=== PATIENT | female | born 1985 | race Caucasian/White ===

== ENCOUNTER 2024-03-10 17:52 | Outpatient (CLI) | payer OTHER, SELFPAY ==
[2024-03-10 23:05] LABS: Chlamydia DNA Amplified* NOT DETECTED (No Detected); GC DNA Amplified* NOT DETECTED (No Detected)
== END 2024-03-10 17:53 | disposition home or self-care (01) ==
PROVIDERS: Visit Provider Registered Nurse
DX: Z34.91 Encounter for supervision of normal pregnancy, unspecified, first trimester (principal); Z3A.09 9 weeks gestation of pregnancy
CPT/HCPCS: 76817; 86592; 86703; 86704; 86706; 86762; 86787; 86803; 86850; 86900; 86901; 87086; 87340; 87491; 87591

== ENCOUNTER 2024-03-31 14:25 | Outpatient (CLI) | payer OTHER, SELFPAY ==
--- NOTE | 2024-03-31 15:00 | CRLHL7_ITS ---
For Patients: As a result of the Century Cures Act, medical imaging exams and procedure reports are released immediately into your electronic medical record. You may view this report before your referring provider. If you have questions, please contact your health care provider. INDICATION: Follow-up tachycardia COMPARISON: 03/10/2024 TECHNIQUE: Real-time garza-scale imaging of the pelvis was performed. FINDINGS: Sonographic imaging demonstrates a single living intrauterine gestation. The embryo demonstrates a regular cardiac rate measuring 165 beats per minute. The embryo`s crown-rump length measurement of 6.1 cm corresponds to a gestational age of 12 weeks 4 days with a sonographic due date of 10/09/2024. The yolk sac is not visualized. There are no gross abnormalities noted within the embryo at this early state of development. The gestational sac has a normal appearance. There is no evidence of a perigestational hemorrhage. The amount of fluid within the sac appears appropriate for gestational age. IMPRESSION: Single living intrauterine with sonographic gestational age 12 weeks 4 days and sonographic due date of 10/09/2024. heart rate 165 beats per minute. Dictated by Stevie Juárez MD @ 04/02/2024 7:10:17 AM (Electronically Signed)
== END 2024-03-31 14:26 | disposition home or self-care (01) ==
LOC: US 14:26
PROVIDERS: Visit Provider Registered Nurse
DX: O36.8310 Maternal care for abnormalities of the fetal heart rate or rhythm, first trimester, not applicable or unspecified (principal); Z3A.12 12 weeks gestation of pregnancy
CPT/HCPCS: 76801

== ENCOUNTER 2024-05-27 10:20 | Outpatient (CLI) | payer OTHER, SELFPAY | END 2024-05-27 10:21 | disposition home or self-care (01) | LOC: US 10:20 | PROVIDERS: Visit Provider Midwife | DX: O09.522 Supervision of elderly multigravida, second trimester (principal); Z3A.20 20 weeks gestation of pregnancy | CPT/HCPCS: 76811 ==

== ENCOUNTER 2024-07-21 11:50 | Outpatient (CLI) | payer OTHER, SELFPAY | END 2024-07-21 11:51 | disposition home or self-care (01) | LOC: NFLDREF 07-25 02:56 | PROVIDERS: Visit Provider Advanced Practice Midwife | DX: Z34.93 Encounter for supervision of normal pregnancy, unspecified, third trimester (principal); Z3A.28 28 weeks gestation of pregnancy | CPT/HCPCS: 86592 ==

== ENCOUNTER 2024-08-09 09:49 | Outpatient (CLI) | payer OTHER, SELFPAY ==
[2024-08-09 09:34] VITALS: BP 109/68; PULSE 56; RESP 16; TEMP 36.5; O2SAT 99; BMI 28.1
[2024-08-09 10:09] VITALS: BP 105/59; PULSE 57
[2024-08-09 13:24] LABS: Fetal Fibronectin* Negative (Negative)
--- NOTE | 2024-08-09 13:43 | PC.OBNST ---
NST Note NST Note Start: 08/09/24 10:06 Freq: ONCE Status: Active Protocol: Document 08/09/24 13:41 YONNY (Rec: 08/09/24 13:42 YONNY [id number]) NST Note 5 Para (# of births) 2 EDC 10/13/24 Gestational Age In Weeks & Days 30 Weeks & 5 Days Patient Presented with Complaint(s) of Other Other Complaints Pt. tripped and fell while out for a run, fell on hands and knees and bumped abdomen Reactive Yes Appropriate for Gestational Age Yes CHARAN Wilson Date 08/09/24 Reactive Yes Appropriate for Gestational Age Yes CHARAN Infante Date 08/09/24 OB NST charge Yes Complete NST Note via Write Note Yes The provider's electronic signature indicates the NST is reactive/appropriate for gestational age. *Note to provider: If an addendum is required, open the patient's chart and click on the note under the Nurse/Allied Health tab.
== END 2024-08-09 13:42 | disposition home or self-care (01) ==
LOC: OB OUT 09:51 → OB 09:56
PROVIDERS: Visit Provider Advanced Practice Midwife
DX: O26.893 Other specified pregnancy related conditions, third trimester (principal); S39.91XA Unspecified injury of abdomen, initial encounter; W01.0XXA Fall on same level from slipping, tripping and stumbling without subsequent striking against object, initial encounter; Y93.02 Activity, running; Y92.9 Unspecified place or not applicable; Z3A.30 30 weeks gestation of pregnancy
CPT/HCPCS: 59025; 84112; G0463

== ENCOUNTER 2024-09-18 15:15 | Outpatient (CLI) | payer OTHER, SELFPAY | END 2024-09-18 15:16 | disposition home or self-care (01) | LOC: NFLDREF 09-21 02:09 | PROVIDERS: Visit Provider Advanced Practice Midwife | DX: Z34.83 Encounter for supervision of other normal pregnancy, third trimester (principal) | CPT/HCPCS: 87081; 87653 ==

== ENCOUNTER 2024-09-22 08:21 | Outpatient (CLI) | payer OTHER, SELFPAY ==
[2024-09-22 08:29] VITALS: PULSE 68; O2SAT 99
[2024-09-22 08:34] VITALS: PULSE 70; O2SAT 98
[2024-09-22 08:36] VITALS: BP 111/71; PULSE 82
[2024-09-22 08:56] VITALS: TEMP 36.6
--- NOTE | 2024-09-22 09:20 | P.OBO_ITS ---
OB Outpatient HPI History of Present Illness Time Seen by Provider: 08:40 Date Seen: 09/22/24 History of Present Illness: 39 year old at 37weeks gestation by LMP, DARIEN 10/13/2024 , presents to the center for a scheduled external cephalic version (ECV) for breech presentation diagnosed at her last visit on 09/18/2024. She had a nonstress test performed that was reviewed with her which showed: My Interpretation of NST: Baseline 130s. Accelerations: Present. Decelerations: Absent. Contractions: Present: Patient not feeling them. Reactive, category 1. A bedside ultrasound was performed and confirmed vertex presentation with the back on the maternal left. Breech in the maternal right upper quadrant. An ECV did not have to be performed. The patient will keep her next visit appointment next week. Is a patient of the nurse midwives. Baby moving naturally: Yes Bleeding: No Contractions: No Leaking fluid: No Discharge: No Heartburn: No Back pain: No Meds Home Medications and Allergies Home Medications ?Medication ?Instructions ?Recorded ?Confirmed ?Type docosahexaenoic acid 200 mg 200 mg PO DAILY 03/10/24 09/22/24 History capsule ( DHA) Allergies Allergy/AdvReac Type Severity Reaction Status Date / Time cefaclor (From Ceclor) Allergy Intermediate Verified 09/22/24 08:55 [facility] Medical History (Updated 09/22/24 @ 09:25 by Concepción Foster MD) Asthma ?J45.909 - Unspecified asthma, uncomplicated (ICD-10) History of miscarriage ?Z87.59 - Personal history of other complications of , childbirth and the puerperium (ICD-10) Surgical History [place] teeth extracted ?K08.409 - Partial loss of teeth, unspecified cause, unspecified class (ICD- 10) History of placement of ear tubes ?Z96.22 - Myringotomy tube(s) status (ICD-10) Social History Narrative: 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 What is your current living situation?: I presently have a place to live Problems where you live: no known problems In the past 12 months, utilities in danger of being shut off: no In past 12 months, lack of transportation kept you from medical appts, meetings, work, or getting things needed for daily living: no In the past 12 mos, have been you worried that your food would run out before you had money to buy more?: never true In the past 12 mos, the food you bought just didn't last and you didn't have money to buy more?: never true Smoking Status: Never smoker How often does anyone, including family, friends and others, physically hurt you : never How often does anyone, including family, friends and others, insult or talk down to you: never How often does anyone, including family, friends and others, threaten you with harm: never How often does anyone, including family, friends and others, scream or curse at you: never History History 5 Elective abortions Para 2 Spontaneous abortions 2 Hx # Term Pregnancies 2 Ectopic pregnancies Hx # Pregnancies Multiple births Number of Living Children 2 Past Pregnancies Del. Date GA/Weeks Outcome Route wt Inf Gender Labor Lgth Anesthesia Location Provider Compli 07/07/19 41 live - full term 8 lb 11 oz Male 24 ep idural Radha- Michelle infection 12/14/21 40 live - full term 8 lb Male 16 none [facility] hemorrhage OB - H&P: Exam Physical Exam Vital signs: Temp Pulse BP Pulse Ox 97.8 F 82 111/71 98 09/22/24 08:56 09/22/24 08:36 09/22/24 08:36 09/22/24 08:34 Narrative: General: Pleasant, woman in no acute distress. Vital signs: Included in her electronic medical record. Bedside ultrasound performed as stated in the HPI above: Fetus in the vertex presentation. External monitor: Baseline 130s, reactive NST. [place]: Contractions every 5-6 minutes that the patient is not feeling. SVE: Deferred Extremities: No pain or edema. Assessment and Plan Assessment and plan (1) Breech presentation: Problem comment: Spontaneously converted to vertex noted on 09/22/2024. Status: Acute Plan 1. Spontaneous conversion to cephalic presentation. 2. ECV was not required. 3. Patient will return to the nurse health and fitness professor care next week for her next visit.
--- NOTE | 2024-09-22 09:33 | PC.OBNST ---
NST Note NST Note Start: 09/22/24 08:25 Freq: ONCE Status: Active Protocol: Document 09/22/24 09:29 FJZ (Rec: 09/22/24 09:32 FJZ [id number]) NST Note 5 Para (# of births) 2 EDC 10/13/24 Gestational Age In Weeks & Days 37 Weeks & 0 Days Patient Presented with Complaint(s) of Other Other Complaints Pt came to the center for a scheduled cephalic version. Baby confirmed head down with ultrasound so no version performed. Reactive Yes CHARAN Shine RN Date 09/22/24 Reactive Yes CHARAN Benedict RN Date 09/22/24 OB NST charge Yes Complete NST Note via Write Note Yes The provider's electronic signature indicates the NST is reactive/appropriate for gestational age. *Note to provider: If an addendum is required, open the patient's chart and click on the note under the Nurse/Allied Health tab.
== END 2024-09-22 09:15 | disposition home or self-care (01) ==
LOC: OB OUT 08:22 → OB 08:22
PROVIDERS: Visit Provider Obstetrics & Gynecology
DX: O32.1XX0 Maternal care for breech presentation, not applicable or unspecified (principal); Z3A.37 37 weeks gestation of pregnancy
CPT/HCPCS: 59025; 76815; G0463

== ENCOUNTER 2024-10-16 20:14 | Inpatient (IN) | payer OTHER, SELFPAY ==
[2024-10-16 19:35] VITALS: BP 140/71; RESP 16; TEMP 36.9; O2SAT 99
[2024-10-16 20:01] VITALS: PULSE 82; O2SAT 98
[2024-10-16 20:09] VITALS: PULSE 71; O2SAT 98
[2024-10-16 20:32] VITALS: BMI 30.2
--- NOTE | 2024-10-16 20:46 | W.PM.LDBA ---
Documented by User: Alessia Kelly 10/17/24 00:36 Subjective History of Present Illness Time Seen by Provider: 20:30 Date Seen: 10/16/24 Narrative: Patient is being admitted to Labor and Delivery for spontaneous contraction. She is a 39 year old at weeks gestation. Her full history and physical was dictated by Sara Gardner CNM and SHANTANU Wooten on 09/24/24. Please see this for details. Specific Issues/Plans G 5 P 2021 Unknown gender, no circ H&P 09/24/24 by Sara Gardner CNM and SHANTANU Estrada # Advanced Maternal Age Mat 21: NEGATIVE (THEY DO NOT KNOW SEX YET!) Level 2 ultrasound no concerns EFW 87% # Asthma-exercise induced and sometimes with illness # Elevated WBCs at 28 weeks. Just getting over a cold at that time. Can consider rechecking. # Breech presentation at 36.3 weeks Recommend ECV, discussed risk/benefit and pt/ desire Spontaneous conversion to cephalic presentation on 09/22/24! Ultrasound: 05/27/2024 [facility]: Impression: 1. Ryan intrauterine at 20w 1d gestational age. 2. None of the anomalies commonly detected by ultrasound were evident in the detailed anatomic survey described above. 3. Growth parameters and estimated weight were consistent with appropriate for gestational age pattern of growth. 4. The amniotic fluid volume appeared normal. Covid: Completed, boosted on 09/04/2024 Flu: completed 08/04/2024 Tdap: completed 08/04/2024 GBS: 09/18/24 Negative H&P: 09/24/24 OB - Problem Based A/P Additional Plan (1) Pain during labor: Status: Acute (2) 40 weeks gestation of : Status: Acute (3) Asthma: Problem details: Utilizes inhaler only after illness. Status: Acute (4) Advanced maternal age in multigravida: Status: Acute Plan ASSESSMENT:?? 39 at 40 weeks 3 days gestation?? complicated by:??Advanced maternal age, breech presentation @ 36w3d, resolved. Labor type: Spontaneous, Early labor?? Category 1 FHR pattern.??? Labor complicated by: [ ]?? GBS negative ?? PLAN:?? 1. Routine intrapartum cares as ordered. Continue with expectant management?? 2. Monitoring per policy, intermittent 3. Planning unmedicated . Desires water . Consent signed. Hep C negative. Candidate for analgesia of choice.??? 4. Patient encouraged to reposition and ambulate to promote physiologic labor and .?? 5. Anticipate ? Delivery/Labor/Induction Plan Plan: expectant management OB Result Labs Labs: Hgb 13.3 on 09/08/24 Labs Blood Type: O (+) positive Rubella: immune RPR/VDLR: nonreactive GBS Status: negative HBsAG: negative OB Exam Physical Exam Vital signs: Pulse Ox 98 10/16/24 20:09 Narrative: Vitals Reviewed Constitutional:? Alert and oriented x3 HEENT:? Normocephalic, atraumatic Neck:? Supple Lungs:? Clear to auscultation bilaterally Heart:? Regular rate and rhythm, no murmur, rub or gallop Abdomen:? Soft, nontender, and gravid. Vertex by Brian's, confirmed with cervical exam. Extremities:? No edema or erythema Cervix:5.5 cm/80%/-1 station/vertex NST: 120 bpm/moderate variability/[id number]/no decelerations/regular contractions 1.5-4 min apart for 80-100 second long Documented by User: Conchis Noel CNM 10/17/24 00:42 Subjective History of Present Illness Narrative: Patient is being admitted to Labor and Delivery for spontaneous contraction. She is a 39 year old at 40.3 weeks gestation. Her full history and physical was dictated by Sara Gardner CNM and SHANTANU Wooten on 09/24/24. Please see this for details. Specific Issues/Plans G 5 P 2021 Unknown gender, no circ H&P 09/24/24 by Sara Gardner CNM and SHANTANU Estrada # Advanced Maternal Age Mat 21: NEGATIVE (THEY DO NOT KNOW SEX YET!) Level 2 ultrasound no concerns EFW 87% # Asthma-exercise induced and sometimes with illness # Elevated WBCs at 28 weeks. Just getting over a cold at that time. Can consider rechecking. # Breech presentation at 36.3 weeks Recommend ECV, discussed risk/benefit and pt/ desire Spontaneous conversion to cephalic presentation on 09/22/24! Ultrasound: 05/27/2024 [facility]: Impression: 1. Ryan intrauterine at 20w 1d gestational age. 2. None of the anomalies commonly detected by ultrasound were evident in the detailed anatomic survey described above. 3. Growth parameters and estimated weight were consistent with appropriate for gestational age pattern of growth. 4. The amniotic fluid volume appeared normal. Covid: Completed, boosted on 09/04/2024 Flu: completed 08/04/2024 Tdap: completed 08/04/2024 GBS: 09/18/24 Negative H&P: 09/24/24 OB - Problem Based A/P Additional Plan (1) Pain during labor: Status: Acute (2) 40 weeks gestation of : Status: Acute (3) Asthma: Problem details: Utilizes inhaler only after illness. Status: Acute (4) Advanced maternal age in multigravida: Status: Acute Plan ASSESSMENT:?? 39 at 40 weeks 3 days gestation?? complicated by:??Advanced maternal age, breech presentation @ 36w3d, resolved. Labor type: Spontaneous, Early labor?? Category 1 FHR pattern.??? Labor complicated by: none GBS negative ?? PLAN:?? 1. Routine intrapartum cares as ordered. Continue with expectant management?? 2. Monitoring per policy, intermittent 3. Planning unmedicated . Desires water . Consent signed. Hep C negative. Candidate for analgesia of choice.??? 4. Patient encouraged to reposition and ambulate to promote physiologic labor and .?? 5. Anticipate OB Exam Physical Exam Vital signs: Vital Signs Temp Resp BP Pulse Ox 98.4 F 16 140/71 H 99 10/16/24 19:35 10/16/24 19:35 10/16/24 19:35 10/16/24 19:35
[2024-10-16 21:30] VITALS: BP 125/72; PULSE 76; RESP 16
[2024-10-16 22:03] VITALS: TEMP 36.8
[2024-10-16 23:46] VITALS: BP 126/57; PULSE 79
[2024-10-16] MEDS: LIDOCAINE 1 % PF 30 ML INJECTION (23:58)
[2024-10-17] VITALS (13 sets, daily range): BP systolic 113–124; BP diastolic 55–73; PULSE 59–82; RESP 14–16; TEMP 36.7–37.6; O2SAT 96–97
[2024-10-17] MEDS: IBUPROFEN 600 MG TABLET PO ×4 (00:20→21:47)
--- NOTE | 2024-10-17 00:25 | W.PM.OBVAGDE ---
Documented by User: Conchis Noel CNM 10/17/24 01:02 OB Procedure Vag Delivery Mother Details Mother Details: The patient is a 39 year-old, 5, now Para 3, admitted on 10/16/24 at 40.3 weeks gestation. : 5 Para: 3 Weeks Gestation: 40.3 Admission Date: 10/16/24 Additional Details Amniotic Membrane Status: SROM Amniotic Membrane Rupture Date: 10/16/24 Amniotic Membrane Rupture Time: 22:46 Intrapartal Events: None Heart: heart tones during second stage were reassuring via intermittent auscultation with doppler. Delivery Details Delivery Details: Patient was admitted for spontaneous onset of labor and progressed normally. Labored ambulating in room and eventually in tub, with position changes throughout until delivery in semi-Recumbant position. SROM noted at 2246 with clear fluid. Patient was assumed complete with pushing at 2250. of a viable male at 2319 in the tub. Vertex delivered OA, restituted LOT. No nuchal cord or shoulder dystocia. Body delivered easily and without incident. passed to mothers abdomen with a vigorous cry. Cord was clamped and cut at > 5 minutes. APGARS were 7 at one minute and 9 at five minutes respectively. Mouth was bulb suctioned. Infant was taken to warmer while mother was assisted from tub to bed. returned to skin to skin on mom. Intact placenta with a 3 vessel cord delivered spontaneously at 2344. Fundus firm. 2nd degree identified and repaired in typical fashion. QBL 450 cc. Mother and baby stable; mother plans to breastfeed. Infant weight 4170 g. 1 Minute Interval Total Score: 7 5 Minute Interval Total Score: 9 Event Summary Status: Mother and were stable after delivery. I,?Conchis Noel APRN, CNM, was present for visit and have reviewed and agree with documentation by the Certified Nurse Midwifery Student. Documented by User: Alessia Kelly 10/17/24 00:54 OB Procedure Vag Delivery Additional Details Amniotic Membrane Fluid Description: Clear Analgesia/Anesthesia Type: None Waterbirth: Yes [place]: No Labor Onset: 19:59 Complete: 22:50 Pushin:50 Heart: heart tones during second stage were Category I Delivery Details Delivery Date: 10/16/24 Delivery Time: 23:19 Route of delivery: Infant Gender: Male Infant Viability: Alive; Heart Rate Present Position at Delivery: OA Delivery Details: Patient was admitted for spontaneous onset of labor and progressed normally. Labored ambulating in room and eventually in tub, with position changes throughout until delivery in semi-Recumbant position. SROM noted at 2246 with clear fluid. Patient was assumed complete with pushing at 2250. of a viable male at 2319 in the tub. Vertex delivered OA, restituted LOT. No nuchal cord or shoulder dystocia. Body delivered easily and without incident. passed to mothers abdomen with a vigorous cry. Cord was clamped and cut at > 5 minutes. APGARS were 8 at one minute and 9 at five minutes respectively. Mouth was bulb suctioned. Intact placenta with a 3 vessel cord delivered spontaneously at 2344. Fundus firm. 2nd degree identified and repaired in typical fashion. QBL 450 cc. Mother and baby stable; mother plans to breastfeed. weight pending. Additional Details Shoulder Dystocia: No Placenta Delivery Time: 23:44 Placental Delivery Description: Spontaneous Delivery repair: Vicryl Procedure Done: Global Blood Loss: 450 Laceration: Vaginal - 2nd Degree Blood Loss Measurement Type: QBL Bakri Used: No Sponge/Need Count Correct: Yes Cord Vessel Description: 3 Vessels Event Summary Disposition: floor
[2024-10-17] MEDS: ACETAMINOPHEN 500 MG TABLET 1000 MG PO ×3 (01:53→17:31)
[2024-10-17] MEDS: DOCUSATE SODIUM 100 MG CAPSULE PO (08:17)
--- NOTE | 2024-10-17 09:02 | PM.OBPNVD1 ---
OB - PN:Subj Subjective Date Seen: 10/17/24 Narrative: Kathleen is a 39 y.o. who was admitted to L & D for labor.? She had an uncomplicated NVD.? ?? The patient feels well.? The pain is well controlled with current medications, advised to take Tylenol and ibuprofen on a schedule for complaints of cramping with nursing.? She has no new complaints.? She is breast feeding and reports things are going well.? the patient has done well.? Vitals have been stable.? She has remained afebrile.? Has a good appetite, is tolerating a general diet.? She is voiding without difficulty.? She is passing gas and has not had a bowel movement.? She is ambulating and denies any dizziness.? Has Small amount of rubra lochia.? OB - PN: Obj Exam Physical Exam: Vital signs: Temp Pulse Resp BP Pulse Ox O2 Del Method 98.1 F 59 L 16 118/65 96 Room Air 10/17/24 05:00 10/17/24 05:00 10/17/24 05:00 10/17/24 05:00 10/17/24 05:00 10/17/24 05:00 Narrative: GENERAL APPEARANCE:? normal affect, alert, no distress? MOOD:? appropriate? HEENT: normocephalic, neck supple, full ROM? CHEST:? Symmetrical chest wall movement.? Normal respiratory effort.? Clear to auscultation ? HEART:? regular rate and rhythm? ABDOMEN:? soft, non-tender. Uterine fundus is firm, at Umbilicus, Midline and is appropriate for the stage of recovery.? Bowel sounds present.? PERINEUM:? mild edema of the perineum, there is a 2nd degree laceration that is healing well.? EXTREMITIES:? normal and no edema? OB - PN: A/P Delivery Assessment and Plan (1) Pain during labor: Status: Acute (2) 40 weeks gestation of : Status: Acute (3) Asthma: Problem details: Utilizes inhaler only after illness. Status: Acute (4) Advanced maternal age in multigravida: Status: Acute (5) care and examination of lactating mother: Status: Acute Plan day: 1 Plan: routine care Comments: G 5 P 3 status post uncomplicated NVD??? 1.? Continue route PP cares? 2.? .? May see if desired? 3.? Anticipate discharge home tomorrow?
[2024-10-18 05:00] VITALS: BP 122/78; PULSE 64; RESP 16; O2SAT 97
[2024-10-18 07:36] VITALS: BP 111/73; PULSE 63; RESP 16; TEMP 36.3
[2024-10-18] MEDS: ACETAMINOPHEN 500 MG TABLET 1000 MG PO (07:44)
[2024-10-18] MEDS: DOCUSATE SODIUM 100 MG CAPSULE PO (07:44)
--- NOTE | 2024-10-18 09:10 | PM.OBDSVD1 ---
DS: Providers Provider Date Seen: 10/18/24 Date of admission: 10/16/24 20:14 Primary care physician: Not a Local Provider Admitting Clinician: Conchis Noel CNM Attending Physician on discharge: Tito Castle CNM Date of Discharge: 10/18/24 DS: Diagnosis Discharge Diagnosis (1) care and examination of lactating mother: Status: Acute Exam Narrative: Exam Narrative: VSS, afebrile GENERAL APPEARANCE: ?normal affect, alert, no distress MOOD: ?appropriate HEENT: normocephalic, neck supple, full ROM CHEST: ?Symmetrical chest wall movement. ?Normal respiratory effort. ?Clear to auscultation HEART: ?regular rate and rhythm ABDOMEN: ?soft, non-tender. Uterine fundus is firm, at Umbilicus, Midline and is appropriate for the stage of recovery. ?Bowel sounds present. PERINEUM: ?mild edema of the perineum, there is a 2nd degree laceration that is healing well. EXTREMITIES: ?normal and no edema Const: Vital Signs, click to edit/add: Vital Signs - 24 hr 10/17/24 10:00 10/17/24 10:10 10/17/24 12:15 Temperature 98.0 F 98.0 F 98.2 F Pulse Rate [Pulse Oximeter] 67 Respiratory Rate 16 Blood Pressure [Le ft Arm] 113/69 Pulse Oximetry 97 Oxygen Delivery Me thod Room Air 10/17/24 15:56 10/17/24 20:04 10/18/24 05:00 Temperature 98.2 F Pulse Rate [Pulse Oximeter] 66 75 64 Respiratory Rate 14 16 16 Blood Pressure [Le ft Arm] 115/66 124/73 122/78 Pulse Oximetry 96 97 97 Oxygen Delivery Me thod Room Air Room Air Room Air 10/18/24 07:36 Temperature 97.4 F L Pulse Rate [Pulse Oximeter] 63 Respiratory Rate 16 Blood Pressure [Le ft Arm] 111/73 Pulse Oximetry Oxygen Delivery Me thod Room Air Documenting provider has reviewed patient's vital signs: yes OB - DS: Summary Hospital Course Hospital Course: Kathleen is a 39 y.o. who was admitted to L & D for labor. ?She had an uncomplicated NVD.?The patient feels well. ?The pain is well controlled with current medications. ?She has no new complaints. ?She is breast feeding and reports things are going well.? the patient has done well.? Vitals have been stable.? She has remained afebrile.? Has a good appetite, is tolerating a general diet. ?She is voiding without difficulty.? She is passing gas and has not had a bowel movement.? She is ambulating and denies any dizziness.? Has Small amount of rubra lochia. ?She is planning condoms for prevention. Peripartum Data delivery method: Vaginal Laceration description: Vaginal - 2nd Degree complications: none [place] Infant Gender: Male Infant Discharge Plan: Home Status at Discharge Functional status at discharge: independent ambulation Overall status at discharge: patient is progressing back to baseline Time Spent with Patient Time attestation: Total time spent providing and/or coordinating discharge services: Time spent: Less than 30 minutes Discharge Plan Discharge Disposition: Home, Self-Care Date of Admission: 10/16/24 20:14 Attending Provider on Discharge: Tito Castle Primary Care Provider: Provider,Not a Local Condition: Stable Anticipated Discharge Date/Time: 10/18/24 12:00 Discharge Medications: New acetaminophen 500 mg Tablet 1,000 mg PO Q6H PRNQty: 0 0RF docusate sodium 100 mg Capsule 100 mg PO DAILY Qty: 90 1RF ibuprofen 600 mg Tablet 600 mg PO Q6H PRNQty: 60 0RF Continued DHA 200 mg capsule 200 mg PO DAILY Discharge Orders: Discharge Order (Routine); Ordered 10/18/24 Ordered By: Tito Castle Patient Education: OB Over the Counter Medication Information, OB Vaginal/Breast Feeding Activity Level: Activity as Tolerated Discharge Diet: Regular Follow Up [facility] Inst[facility]
== END 2024-10-18 10:45 | disposition home or self-care (01) | DRG 807 ==
LOC: OB OUT 20:15 → OB 20:15
PROVIDERS: Admitting Provider Advanced Practice Midwife; Visit Provider Advanced Practice Midwife
DX: O70.1 Second degree perineal laceration during delivery (principal); Z37.0 Single live birth; Z3A.40 40 weeks gestation of pregnancy; J45.990 Exercise induced bronchospasm
CPT/HCPCS: 86592; A9270; J2003

== ENCOUNTER 2025-02-22 11:58 | Emergency (ER) | payer OTHER, SELFPAY ==
--- OUTSIDE RECORDS SUMMARY | 2025-02-22 12:00 | XMS_ITS | Clinical Summary ---
Author Organization [employer] [facility] [employer] Address [address] [place] [address] Care Team Providers Care Bridal Stylist Sales Consultant Name Role Phone Destiny Rogers MD Primary Care Provider [phone] Allergies Active Allergy Reactions Criticality Noted Date Comments Cefaclor *Unknown - Childhood Rxn 03/27/2006 Pineapple GI Upset 03/10/2019 Medications vitamin-folic acid 1 mg ( RX) tablet/capsule Take 1 tablet by mouth once daily. 0 12/10/19 19 Active cholecalciferol (VITAMIN D3) 2,000 unit capsule 1 capsule orally every other day. 0 01/15/20 19 Active albuterol HFA (PRO-AIR; VENTOLIN; PROVENTIL) 90 mcg/actuation inhalerIndicatio ns:Mild intermittent asthma without complication (HC) Inhale 2 Puffs by mouth every 4 hours if needed for Shortness of Breath 1st choice or Wheezing 2nd choice. 1 Each 1 08/16/20 21 Active Breast Pump PurchaseIndicati ons: disorder (HC) Electric breast pump for home use. Gestation age at delivery: due12/10/21 . Reason for need: disorder. Length of need: 12 months 1 Each 11/29/19 22 Active docusate (COLACE) 100 mg capsuleIndicatio ns:Post term , delivered (HC) Take 1 Capsule (100 mg) by mouth once daily. 100 Capsule 12/16/19 22 Active ibuprofen (Motrin IB) 200 mg tabletIndication s:Post term , delivered (HC) Take 1-3 Tablets (200-600 mg) by mouth every 6 hours if needed (for uterine cramping). Take with food. 100 Tablet 12/16/19 Active milk of magnesia (MOM) 400 mg/5 mL suspension 15 mL once daily if needed. Active hydrocortisone (ANUSOL-HC SUPPOSITORY) 25 mg suppositoryIndic ations:Hemorrhoi ds, internal Insert 1 Suppository (25 mg) rectally 2 times daily. As needed for hemorrhoids 12 Suppository 2 01/25/20 22 Active fluconazole (DIFLUCAN) 200 mg tabletIndication s:Candidal skin infection 2 tabs oral day 1 and then 1 a day for 13 more days. 15 Tablet 02/17/20 Active triamcinolone (ARISTOCORT; KENALOG) 0.1 % creamIndications :Acute eczema Apply topically to affected area(s) 2 times daily if needed (rash/itching). 30 g 03/07/20 22 Active Active Problems Problem Noted Date Diagnosed Date (normal spontaneous vaginal delivery) 07/07 Eczema 09/03/2006 Unspecified asthma(493.90) 03/27/2006 Allergic rhinitis, cause unspecified 03/27/2006 Post-term , 40-42 weeks of gestation Post term , delivered Resolved Problems Problem Noted Date Diagnosed Date Resolved Date Chorioamnionitis in third trimester 07/07/2019 12/14/2021 Sepsis during labor 07/07/2019 12/15/19 22 Severe sepsis 07/07/2019 12/14/2021 Overview (07/07/2019): Based on lactate alone - level of 5.9 in labor GBS (group B Streptococcus c arrier), +RV culture, currently 05/29/2019 12/14/2021 Immunizations Immunization Administration Dates Next Due AMB Influenza, IIV4 PF (=>6 mos Flulaval,Fluzone Fluarix)(Flu Clinic Only) 05/25/2020 COVID-19 vaccine (Entangled [employer] NTech 30mcg/0.3mL) PF, MDV 07/19/2021 Hepatitis A (Adult) 08/02/2014,05/27/2009 Hepatitis B (Peds) 09/02/2000,03/21/2000, 000 Human Papilloma Virus Vaccine 05/27/2009, 007 Influenza, IIV3 (Age >=3 years) 06/13/20 21,05/27/2009,09/03/2006,07/13 Influenza, IIV4 05/26/2019,06/04/2013 Influenza, IIV4 (=>6mos) MDV 05/30/2015 MMR 02/12/2000 Meningococcal Vaccine 03/27/2006 Td (Age >=7 Years) 02/12/2000 Tdap 09/22/2021,04/08/2019,07/11/2015 Tuberculin (PPD) 03/27/2006 Yellow Fever 05/27/2009 Family History Medical History Relation Name Comments Good Health Brother Atrial fibrillation Father Stroke Maternal Grandfather 70s Lymphoma Maternal Grandmother Diabetes Mother type 1 Lung cancer Paternal Grandfather Diabetes Sister 1 type 1 Rheum arthritis Sister 2 Good Health Son Relation Name Status Comments Brother Father Maternal Grandfather Maternal Grandmother Mother Paternal Grandfather Paternal Grandmother Sister 1 Sister 2 RA diagnosed af ter giving child Son Social History Tobacco Use Types Packs/Day Years Used Date Smoking Tobacco: Never Smokeless Tobacco: Never Tobacco Cessation:Counseling Given: Yes Comments:no exposure Alcohol Use Standard Drinks/Week Comments Not Currently 0 (1 standard drink = 0.6 oz pur e alcohol) PHQ-2 Answer Date Recorded PHQ-2 TOTAL SCORE 0 05/17/2021 Social Connections Answer Date Recorded Frequency of Communication with Friends and Fami ly Not on file 10/03/2022 Financial Resource Strain Answer Date R ecorded Difficulty of Paying Living Expenses 3 09/22/2021 Difficulty of Paying Living Expenses Not on file 09/22/2021 Food Insecurity Answer Date Recorded Worried About Running Out of Food in the Last Ye ar 1 09/22/2021 Transportation Needs Answer Date Record ed Lack of Transportation (Medical) 1 09/22/2021 Housing Stability Answer Date Recorded Unable to Pay for Housing in the Last Year 1 09/22/2021 Comments No Sex and Gender Information Value Date Recorded Sex Assigned at Not on file 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 Complications:Intraamniotic Infection Delivery Location:[facility]) 2021 Term 40w 4d 23h 00m 22h 23m/0h 31m/0h 06m 3.63 kg (8 lb) M Vag-S pont None Livin g 8 9 JESSE FERNANDEZ , Destiny Campo MD Complications:None Delivery Location:Hospital ( [address] L&D TRIAGE) Last Filed Vital Signs Vital Sign Reading Time Taken Comments Blood Pressure 100/62 03/07/2022 3:08 PM CDT Pulse 64 03/07/2022 3:08 PM CDT Temperature 36.7 C (98 F) 03/07/2022 3:08 PM CDT Respiratory Rate 20 01/24/2022 4:33 PM CDT Oxygen Saturation 96% 02/10/2022 8:43 AM CDT Inhaled Oxygen Concentration - - Weight 71.2 kg (157 lb) 03/07/2022 3:08 PM CDT Height 168.9 cm (5' 6.5) 12/13/2021 3:39 PM CDT Body Mass Index 24.96 12/13/2021 3:39 PM CDT Plan of Treatment Health Maintenance Due Date Last Done Comments Hepatitis C screening for age 18-79 2005 Depression screening for age 12+ 05/17/2022 05/17/2021, 09/08/2019, 06/10/2019, Additional history exists BMI (ht and wt on same day) for age 18+ 11/24/2022 11/24/2021, 05/17/2021, 06/24/2019, Additional history exists COVID-19 vaccine series () 05/03/2024 07/19/2021, 12/22/2020, 12/01/2020 Influenza Vaccine (Season Ended) 2025 06/13/2021, 05/25/2020, 05/26/2019, Additional history exists Pap test for age 21-65 03/10/2029 , 03/10/2024, 02/27/2018, Additional history exists Tetanus booster 09/22/2031 09/22/2021, 03/2019, 07/11/2015, Additional history exists Hepatitis B series for 19+ Completed 09/02, 03/21/2000, 02/12/2000 HIV for age 15-65 Completed 05/17/2021, 12/09/2018 Tdap Completed 09/22/2021, 03/2019, 07/11/2015, Additional history exists Pneumococcal series for age 6-49 Aged Out No longer eligible based on patient's age to complete this topic Procedures Procedure Name Priority Date/Time Associated Diagnosis Comments HPV HIGH RISK Routine 03/10/2024 5:45 PM CDT ANTI HIV 1/2 Routine 05/17/2021 5:29 PM CDT , unspecified gestational age (HC) from Last 3 Months or Most Recently Relevant to Health Maintenance Results * HPV HIGH RISK (03/10/2024 5:45 PM CDT) TYPE 16 Negative Negative 03/13/2024 3:01 PM CDT [facility] TYPE 18 Negative Negative 03/13/2024 3:01 PM CDT [facility] OTHER HIGH RISK TYPES Negative Negative 03/13/2024 3:01 PM CDT [facility] LAB[facility] Other (Cervical) 03/10/2024 5:45 PM CDT 03/12/2024 10:21 AM CDT [facility] 03/13/2024 3:01 PM CDT HPV types 16, 18, 31, 33, 35, 39, 45, 51, 52, 56, 58, 59, 66 and 68 DNA were undetectable or below the pre-set threshold. Methodology: Zuhair Rodrick 4800 HPV Test us Maryann Magaña NP MICROBIOLOGY Final Res ult [facility] [address] [place] [address], [place] * ANTI HIV 1/2 (05/17/2021 5:29 PM CDT) HIV-1/HIV-2 ANTIBODY Non-Reacti ve Non-Reacti ve 05/18/2021 4:09 PM CDT [facility] Comment:HIV-1 p24 and HIV-1/ HIV-2 Ab not detected. Blood BLOOD SPECIMEN / Unknown Butterfly / Unknown 05/17/2021 5:29 PM CDT 05/17/2021 5:29 PM CDT us Destiny Rogers MD SEND OUTS Final Result [facility] [address] [place] [address], from Last 3 Months or Most Recently Relevant to Health Maintenance Insurance [facility] CIGNA Advance Directives * Full Code (Latest Code Status on File) Date Activated Date Inactivated Comments 12/14/2021 8:11 AM 12/15/2021 1:24 PM Question Answer Comments Code Status Discussion: Reviewed Preferences * Full Code Date Activated Date Inactivated Comments 07/07/2019 12:47 PM 07/09/2019 3:11 PM Question Answer Comments Code Status Discussion: Discussed * Full Code Date Activated Date Inactivated Comments 07/07/2019 8:54 AM 07/07/2019 12:23 PM Care Teams Bridal Stylist Sales Consultant Relationship Specialty Start Date End Date Destiny Rogers MD [address] [place] [address] PCP - General Family Practice 12/16/18
[2025-02-22 12:17] VITALS: BP 137/75; PULSE 106; RESP 16; TEMP 37; O2SAT 99; BMI 26.5
--- NOTE | 2025-02-22 12:35 | ED_ITS ---
HPI - General Adult General Chief complaint: Abdominal Pain Stated complaint: lower abdominal pain Time Seen by Provider: 02/22/25 12:06 Source: patient Mode of arrival: ambulatory Limitations: no limitations History of Present Illness HPI narrative: 39-year-old female presenting today with lower abdominal pain and some present for about 3 months. In the last week it has gotten more consistent and more painful. She states that it comes and goes throughout the day occurs a 1-3 times per day and lasts around 30 minutes. She describes the pain is low in the pelvis on both sides. She denies difficulty with urination, dysuria, increased urgency. She states that perhaps she has a little bit of increased frequency. She denies diarrhea or constipation, has a daily bowel movement. Denies nausea or vomiting. No fevers or chills. She is 4 months and is breast feeding, the pain does not come when she is . No changes in her appetite. She just had baby #3. Related Data Home Medications ?Medication ?Instructions ?Recorded ?Confirmed docosahexaenoic acid 200 mg 200 mg PO DAILY 03/10/24 0 11/23/24 capsule ( DHA) Previous Rx's ?Medication ?Instructions ?Recorded docusate sodium 100 mg capsule 100 mg PO DAILY #90 cap s 10/18/24 Allergies Allergy/AdvReac Type Severity Reaction Status Date / Time cefaclor (From [facility]) Allergy Intermediate Verified 11/23/24 10:57 Review of Systems Status of ROS: Reports: 10 or more systems reviewed and unremarkable except as noted in History and below [facility] Medical History Breech presentation ?O32.1XX0 - Maternal care for breech presentation, not applicable or unspecified (ICD-10) Asthma ?J45.909 - Unspecified asthma, uncomplicated (ICD-10) History of miscarriage ?Z87.59 - Personal history of other complications of , childbirth and the puerperium (ICD-10) Surgical History [place] teeth extracted ?K08.409 - Partial loss of teeth, unspecified cause, unspecified class (ICD- 10) History of placement of ear tubes ?Z96.22 - Myringotomy tube(s) status (ICD-10) Family History Family/Other No significant family history Social History Narrative: 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 What is your current living situation?: I presently have a place to live Problems where you live: no known problems In the past 12 months, utilities in danger of being shut off: no In past 12 months, lack of transportation kept you from medical appts, meetings, work, or getting things needed for daily living: no In the past 12 mos, have been you worried that your food would run out before you had money to buy more?: never true In the past 12 mos, the food you bought just didn't last and you didn't have money to buy more?: never true Smoking Status: Never smoker Do you use any of these nicotine containing products: None How often do you have a drink containing alcohol: never AUDIT-C Alcohol total score: 0 Non-prescribed substance use: denies use How often does anyone, including family, friends and others, physically hurt you : never How often does anyone, including family, friends and others, insult or talk down to you: never How often does anyone, including family, friends and others, threaten you with harm: never How often does anyone, including family, friends and others, scream or curse at you: never Exam Narrative: Exam Narrative: Well-nourished well-developed patient in no acute distress. Alert and oriented. Answers questions appropriately. Slightly flat affect. Thoughts are goal oriented and rational. No tangential or magical thinking noted. Patient speaks in full sentences without needing to catch her breath. Patient does not appear ill or toxic. HEENT: Normocephalic atraumatic. Pupils are equally round reactive to light. Extraocular muscles are intact. Conjunctivae are moist without any icterus noted. Moist mucous membranes. Posterior pharynx is normal. Neck is soft without any lymphadenopathy or thyromegaly. No masses are appreciated. Cardiovascular: Heart is regular rate and rhythm S1 and S2 are present without any murmurs. Lungs: Clear to auscultation bilaterally no wheezes rhonchi or rales are appreciated. Patient takes deep breaths without any discomfort. Abdomen: Soft and nondistended with normal bowel sounds. She has mild right lower quadrant tenderness. No tenderness at McBurney's point, no periumbilical tenderness. No suprapubic pain. Extremities: Bilateral lower extremities are without edema. Normal DP and PT pulses. Skin: Well perfused without any obvious rashes. Const: Vital Signs, click to edit/add: Vital Signs - 24 hr 02/22/25 12:17 Temperature 98.6 F Pulse Rate [Right Radial] 106 H Respiratory Rate 16 Blood Pressure [Ri ght Upper Arm] 137/75 Pulse Oximetry 99 Oxygen Delivery Me thod Room Air Course Course ED Course: Differential diagnoses includes uterine cramping, ovarian cyst, ectopic , constipation. Work is entirely normal. Ultrasound reveals bilateral cysts or mass like projections. Discussed with Dr. Foster who recommends a follow-up visit with OBGYN this week. At this time I do not have any evidence that the patient has an ovarian torsion, she is sitting in bed comfortably. Vital Signs Vital signs: Initial Vital Signs Temperature 98.6 F 02/22/25 12:17 Temperature Source Temporal Artery Scan 02/22/25 12:17 Pulse Rate 106 H 02/22/25 12:17 Pulse Rhythm Regular 02/22/25 12:17 Respiratory Rate 16 02/22/25 12:17 Blood Pressure 137/75 02/22/25 12:17 Blood Pressure Mean 95 02/22/25 12:17 Pulse Oximetry 99 02/22/25 12:17 Oxygen Delivery Method Room Air 02/22/25 12:17 Vital Signs Temperature 98.6 F 02/22/25 12:17 Pulse Rate 106 H 02/22/25 12:17 Respiratory Rate 16 02/22/25 12:17 Blood Pressure 137/75 02/22/25 12:17 Pulse Oximetry 99 02/22/25 12:17 Oxygen Delivery Method Room Air 02/22/25 12:17 Temperature 98.6 F 02/22/25 12:17 Pulse Rate 106 H 02/22/25 12:17 Respiratory Rate 16 02/22/25 12:17 Blood Pressure 137/75 02/22/25 12:17 Pulse Oximetry 99 02/22/25 12:17 Oxygen Delivery Method Room Air 02/22/25 12:17 Medical Decision Making MDM Narrative Medical decision making narrative: 39-year-old female with pelvic pain, large ovarian cysts bilaterally. Will follow-up with OBGYN Lab Data Lab results reviewed: Yes I reviewed the patient's lab results Labs: Lab Results 02/22/25 02/22/25 Range/Units 12:45 Unknown WBC 8.25 (4.50-11.00) K/uL RBC 4.56 (4.00-5.20) m/uL Hgb 13.3 (12.0-16.0) gm/dL Hct 40.5 (33.0-51.0) % MCV 89 (80-100) fL MCH 29 (26-34) pg MCHC 33 (32-36) gm/dL RDW Coeff of Jeanette 11.8 (11.5-15.5) % Plt Count 330 (140-440) K/uL Neut % (Auto) 55.0 (42.0-72.0) % Lymph % (Auto) 34.2 (20-44) % Parke % (Auto) 6.5 (0.0-11.0) % Eos % (Auto) 3.6 (0.0-7.0) % Baso % (Auto) 0.6 (0.0-3.0) % Neut # (Auto) 4.53 (1.7-7.0) K/uL Lymph # (Auto) 2.82 (0.90-2.90) K/uL Parke # (Auto) 0.50 (0.00-0.90) K/UL Eos # (Auto) 0.30 (0.00-0.50) K/uL Baso # (Auto) 0.05 (0.00-0.30) K/uL Abs Immat Gran (auto) 0.01 (0.00-0.30) K/uL Imm/Tot Granulo (auto) 0.1 % Sodium 138 (135-149) mmol/L Potassium 4.3 (3.6-5.1) mmol/L Chloride 105 (96-114) mmol/L Carbon Dioxide 27 (20-32) mmol/L Anion Gap 6 L (7-15) mEq/L BUN 16 (5-24) mg/dL Creatinine 0.8 (0.5-1.5) mg/dL Estimated Creat Clear 90.13 Estimated GFR 97 ml/min Glucose 88 (60-115) mg/dL Lactate 0.7 (0.5-1.9) mmol/L Calcium 9.5 (8.4-10.6) mg/dL Total Bilirubin 1.3 (0.1-1.5) mg/dL Direct Bilirubin 0.0 (0.0-0.5) mg/dL AST 27 (12-35) U/L ALT 15 (4-35) U/L Alkaline Phosphatase 37 L (40-150) U/L C-Reactive Protein < 0.5 L (0.5-1.0) mg/dL Total Protein 7.6 (6.0-8.3) g/dL Albumin 4.3 (3.3-5.0) g/dL Lipase 23 (23-300) U/L HCG, Quant < 2.39 mIU/mL Urine Color Yellow (Yellow) Urine Appearance Clear (Clear) Urine pH 6.0 (5.0-8.5) Ur Specific [place] 1.025 (1.000-1.030) Urine Protein Negative (Negative) Urine Glucose (UA) Negative (Negative) Urine Ketones Negative (Negative) Urine Blood Negative (Negative) Urine Nitrite Negative (Negative) Urine Bilirubin Negative (Negative) Urine Urobilinogen 0.2 (0.2-1.0) Ur Leukocyte Esterase Negative (Negative) Urine RBC 0-2 (0-2) Urine WBC 0-2 (0-5) Ur Squamous Epith Cells Moderate A (None-Few) Urine Bacteria Few A (None) Urine HCG, Qual Negative (Negative) Imaging Data US - abdomen: Attestation: I have reviewed the pertinent imaging results. Radiologist's impression: Technique: Ultrasound pelvis transabdominal and transvaginal for better assessment or to better visualize the endometrium. Real-time sonographic images with spectral and color Doppler imaging of the ovaries were obtained. Comparison: None. Findings: Uterus: Size: 8.0 x 3.4 x 5.5 cm. Mass: No. Endometrium: Transvaginal imaging was performed to better evaluate the endometrium. Thickness: 4.9 mm. Mass or fluid collection: No. Right ovary: Size: 8.9 x 5.3 x 10.1 cm. Mass: 6.4 x 4.5 x 5.4 centimeter anechoic lesion with no internal blood flow. 4.6 x 3.7 x 5.3 centimeter anechoic lesion with internal septation and no internal blood flow. Possible 1.0 centimeter hypoechoic mass within the right ovary on the cine images. Blood flow: Normal arterial and venous blood flow. Left ovary: Size: 9.4 x 4.8 x 6.9 cm. Mass: There is a heterogeneous masslike appearance of the left ovary measuring 6.6 x 4.8 x 7.2 centimeters with some subtle areas of hyperechogenicity blood flow is noted along the periphery.. Blood flow: Normal arterial and venous blood flow noted peripherally. Cul-de-sac and adnexa: Significant free Fluid: Trace fluid. Mass: No. Impression: 1. Indeterminate heterogeneous masslike appearance of the left ovary measuring approximately 7 centimeters. There is documented blood flow more peripherally along the left ovary. A follow-up pelvic MRI is recommended for further evaluation. 2. Two cystic lesions within the right ovary measuring up to 6.4 centimeters. Document blood flow to the right ovary. Discharge Plan Discharge Clinical Impression: Pelvic pain, Ovarian cyst Patient Disposition: Home, Self-Care Condition: Stable Additional Instructions: You will need to follow-up with OBGYN this week. The phone number to the clinic will be provided to you. When you call to make the appointment state that you need an ER visit follow-up per the recommendation of Dr. Marcus Fortune. If your pain spikes significantly between now in your appointment, you should return to the emergency department. Prescriptions: No Action DHA 200 mg capsule 200 mg PO DAILY docusate sodium 100 mg Capsule 100 mg PO DAILY Qty: 90 1RF Follow Up/Referrals: Provider,Not a Local [Primary Care Provider, Family Practice] Stand Alone Forms: [employer] Info Instructions
[2025-02-22 12:51] LABS: Lactate* 0.7 mmol/L (0.5-1.9)
[2025-02-22 12:53] LABS: Basophils Absolute Auto 0.05 K/uL (0.00-0.30); Basophils Percent Auto 0.6 % (0.0-3.0); Eosinophils Percent Auto 3.6 % (0.0-7.0); Hematocrit 40.5 % (33.0-51.0); Hemoglobin* 13.3 gm/dL (12.0-16.0); Immature Granulocytes Abs Auto 0.01 K/uL (0.00-0.30); Immature Granulocytes Pct Auto 0.1 %; Lymphocytes Absolute Auto 2.82 K/uL (0.90-2.90); Lymphocytes Percent Auto 34.2 % (20-44); Mean Corpuscular HGB Conc 33 gm/dL (32-36); Mean Corpuscular Hemoglobin 29 pg (26-34); Mean Corpuscular Volume 89 fL (80-100); Monocytes Percent Auto 6.5 % (0.0-11.0); Neutrophils Absolute Auto 4.53 K/uL (1.7-7.0); Platelet Count* 330 K/uL (140-440); RDW Coefficient of Variation % 11.8 % (11.5-15.5); Red Blood Count 4.56 m/uL (4.00-5.20); White Blood Count* 8.25 K/uL (4.50-11.00)
[2025-02-22 12:59] LABS: Slide Review Reflex No
[2025-02-22 13:07] LABS: Albumin* 4.3 g/dL (3.3-5.0); Chloride* 105 mmol/L (96-114); Sodium* 138 mmol/L (135-149)
[2025-02-22 13:08] LABS: Potassium* 4.3 mmol/L (3.6-5.1)
[2025-02-22 13:10] LABS: Alanine Aminotransferase* 15 U/L (4-35); Alkaline Phosphatase* 37 U/L (40-150); Aspartate Amino Transferase* 27 U/L (12-35); Bilirubin Total* 1.3 mg/dL (0.1-1.5); Blood Urea Nitrogen* 16 mg/dL (5-24); Carbon Dioxide* 27 mmol/L (20-32); Creatinine* 0.8 mg/dL (0.5-1.5); Est. Creatinine Clearance* 90.13; Estimated Glomerular Filt Rate 97 ml/min; Lipase* 23 U/L (23-300); Total Protein* 7.6 g/dL (6.0-8.3)
[2025-02-22 13:11] LABS: Calcium* 9.5 mg/dL (8.4-10.6); Glucose* 88 mg/dL (60-115)
[2025-02-22 13:21] LABS: Anion Gap 6 mEq/L (7-15); C Reactive Protein* < 0.5 mg/dL (0.5-1.0)
[2025-02-22 13:30] LABS: Appearance Urine Clear (Clear); Bilirubin Urine Negative (Negative); Blood Urine Negative (Negative); Color Urine Yellow (Yellow); Glucose Urine Negative (Negative); Ketones Urine Negative (Negative); Leukocyte Esterase Urine Negative (Negative); Nitrite Urine Negative (Negative); Protein Urine Negative (Negative); Specific Gravity Urine 1.025 (1.000-1.030); Urobilinogen Urine 0.2 (0.2-1.0)
[2025-02-22 13:32] LABS: Ur HCG Qualitative* Negative (Negative)
[2025-02-22 13:37] LABS: RBC Urine 0-2 (0-2); WBC Urine 0-2 (0-5)
[2025-02-22 13:38] LABS: Bacteria Urine Few; Squamous Epithelial Cell Urine Moderate (None-Few)
[2025-02-22 13:44] LABS: HCG Quantitative* < 2.39 mIU/mL
[2025-02-22 14:01] VITALS: BP 131/83; PULSE 56; RESP 14
== END 2025-02-22 14:02 | disposition home or self-care (01) ==
PROVIDERS: Emergency Provider Family Medicine
DX: R10.2 Pelvic and perineal pain (principal); N83.201 Unspecified ovarian cyst, right side
CPT/HCPCS: 36415; 76830; 76856; 80048; 80076; 81001; 81025; 83605; 83690; 84702; 85025; 86140; 86304; 87086; 93976; 99284; 99285

== ENCOUNTER 2025-02-23 08:39 | Day surgery (SDC) | payer OTHER, SELFPAY ==
[2025-02-23] VITALS (22 sets, daily range): BP systolic 109–126; BP diastolic 50–81; PULSE 42–76; RESP 12–18; TEMP 35.8–38.1; O2SAT 96–100; BMI 25.8
--- OUTSIDE RECORDS SUMMARY | 2025-02-23 08:46 | XMS_ITS | Clinical Summary ---
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 Complications:Intraamniotic Infection Delivery Location:[facility]) 2021 Term 40w 4d 23h 00m 22h 23m/0h 31m/0h 06m 3.63 kg (8 lb) M Vag-S pont None Livin g 8 9 JESSE FERNANDEZ , Destiny Campo MD Complications:None Delivery Location:Hospital ( [address] L&D TRIAGE) Last Filed Vital Signs [...] 16 Negative Negative 03/13/2024 3:01 PM CDT [facility] TYPE 18 Negative Negative 03/13/2024 3:01 PM CDT [facility] OTHER HIGH RISK TYPES Negative Negative 03/13/2024 3:01 PM CDT [facility] Other (Cervical) 03/10/2024 5:45 PM CDT 03/12/2024 10:21 AM [facility]T [facility] 03/13/2024 3:01 PM CDT HPV types 16, 18, 31, 33, 35, 39, 45, 51, 52, 56, 58, 59, 66 and 68 DNA were undetectable or below the pre-set threshold. Methodology: Zuhair Rodrick 4800 HPV Test us Maryann Magaña NP MICROBIOLOGY Final Res ult [facility] [address] [place] [address], [place] * ANTI HIV 1/2 (05/17/2021 5:29 PM CDT) HIV-1/HIV-2 ANTIBODY Non-Reacti ve Non-Reacti ve 05/18/2021 4:09 PM CDT [facility] Comment:HIV-1 p24 and HIV-1/ HIV-2 Ab not detected. Blood BLOOD SPECIMEN / Unknown Butterfly / Unknown 05/17/2021 5:29 PM CDT 05/17/2021 5:29 PM CDT us Destiny Rogers MD SEND OUTS Final Result [facility] [address] [place] [address], from Last 3 Months or Most Recently Relevant to Health Maintenance Insurance [facility] CIGNA Advance Directives * Full [...] 8:54 AM 07/07/2019 12:23 PM Care Teams Cloud Systems Administrator Relationship Specialty Start Date End Date Destiny Rogers MD [address] [place] [address] PCP - General Family Practice 12/16/18
--- NOTE | 2025-02-23 09:02 | CRLHL7_ITS ---
For Patients: As a result of the Century Cures Act, medical imaging exams and procedure reports are released immediately into your electronic medical record. You may view this report before your referring provider. If you have questions, please contact your health care provider. INDICATION: Increased right adnexal pain with known large ovarian cysts. COMPARISON: Pelvic ultrasound on February 22, 2025 TECHNIQUE: Duarte-scale and color Doppler ultrasound of the uterus and ovaries from a transabdominal and transvaginal approach. Transvaginal ultrasound of the pelvis was performed to better visualize the genitourinary organs, such as the ovaries and/or endometrium. Color-flow and spectral Doppler imaging of both ovaries is performed. FINDINGS: Uterus: Size: 9.5 x 4.2 x 5.5 cm. Mass: No. Endometrium: Thickness: 10 mm. Mass or fluid collection: No. Right ovary: Size: Measures up to approximately 9 centimeters in greatest dimension Mass: Re-demonstration of two large cysts as detailed on yesterday`s pelvic ultrasound. The previously visualized 1.0 centimeter hypoechoic mass within the right ovary is not appreciated. Blood flow: Arterial flow is seen in the right ovary; however, no definitive venous flow is appreciated. Left ovary: Size: Measures up to approximately 13 centimeters in greatest dimension. Mass: Re-demonstration of 2 probable dermoids within the left ovary measuring up to approximately 7 centimeters Blood flow: Normal arterial and venous blood flow noted peripherally. Cul-de-sac and adnexa: Significant free Fluid: Trace fluid. Mass: No. IMPRESSION: 1. Redemonstration of 2 large right ovarian cysts measuring up to 6.4 centimeters. While arterial flow is seen within the right ovarian tissue, no venous flow is appreciated, concerning for right ovarian torsion. Recommend emergent consultation with gynecology. 2. Normal blood flow is visualized within the left ovary which contains likely two dermoids. Findings were discussed with Dr. Cartagena at 10:45 a.m. on 02/23/2025. Dictated by Umesh Adamson MD @ 02/23/2025 10:47:59 AM (Electronically Signed)
[2025-02-23] MEDS: HYDROmorphone 0.5 mg/0.5 ml inj IVP ×2 (09:23→11:07)
[2025-02-23] MEDS: ONDANSETRON 2 MG/ML inj 4 MG IVP ×2 (09:23→17:44)
[2025-02-23] MEDS: KETOROLAC 30 MG/ML inj IVP ×2 (09:23→22:43)
[2025-02-23 09:32] LABS: Basophils Absolute Auto 0.05 K/uL (0.00-0.30); Basophils Percent Auto 0.7 % (0.0-3.0); Eosinophils Absolute Auto 0.12 K/uL (0.00-0.50); Eosinophils Percent Auto 1.7 % (0.0-7.0); Hematocrit 42.2 % (33.0-51.0); Hemoglobin* 14.2 gm/dL (12.0-16.0); Immature Granulocytes Abs Auto 0.01 K/uL (0.00-0.30); Immature Granulocytes Pct Auto 0.1 %; Lymphocytes Absolute Auto 2.14 K/uL (0.90-2.90); Lymphocytes Percent Auto 29.5 % (20-44); Mean Corpuscular HGB Conc 34 gm/dL (32-36); Mean Corpuscular Hemoglobin 30 pg (26-34); Mean Corpuscular Volume 88 fL (80-100); Monocytes Percent Auto 5.2 % (0.0-11.0); Neutrophils Absolute Auto 4.56 K/uL (1.7-7.0); Neutrophils Percent Auto 62.8 % (42.0-72.0); Platelet Count* 351 K/uL (140-440); RDW Coefficient of Variation % 11.7 % (11.5-15.5); Red Blood Count 4.82 m/uL (4.00-5.20); White Blood Count* 7.26 K/uL (4.50-11.00)
[2025-02-23 09:33] LABS: Slide Review Reflex No
--- NOTE | 2025-02-23 09:34 | ED_ITS ---
HPI - Abdominal Pain General Date Seen: 02/23/25 Chief Complaint: Abdominal Pain Stated Complaint: was in yesterday for abdominal pain- pain is there Time Seen by Provider: 02/23/25 08:41 Source: patient and family Mode of arrival: ambulatory History of Present Illness HPI narrative: Patient is a 39-year-old female who is back in the emergency room for abdominal pain, she was seen yesterday. For abdominal pain. She was diagnosed with bilateral ovarian cysts, ultrasound was done, and her pain improved, overnight her pain is worsens become more right-sided. It goes to her back, associated with nausea and she has thrown up at least once before she came in. She took Tylenol at midnight, 2 tablets and ibuprofen this morning 400 mg. She is here with her . She is status vaginal delivery 4 months and , test yesterday was negative, she had some blood flow yesterday to her cyst. They did not think it was torsion was told to come back if the pain worsen or recurred. She has a follow-up appointment today actually with [facility]. No fevers chills or sweats, no dysuria frequency, denies any vaginal discharge, previous history of abdominal surgeries. Three previous vaginal deliveries. Related Data Patient : No Home Medications ?Medication ?Instructions ?Recorded ?Confirmed docosahexaenoic acid 200 mg 200 mg PO DAILY 03/10/24 0 02/23/25 capsule ( DHA) Previous Rx's ?Medication ?Instructions ?Recorded docusate sodium 100 mg capsule 100 mg PO DAILY #90 cap s 10/18/24 Allergies Allergy/AdvReac Type Severity Reaction Status Date / Time cefaclor (From [facility]) Allergy Intermediate Verified 02/23/25 08:52 Review of Systems Status of ROS Reports: 10 or more systems reviewed and unremarkable except as noted in History and below [facility] Medical History Breech presentation ?O32.1XX0 - Maternal care for breech presentation, not applicable or unspecified (ICD-10) Asthma ?J45.909 - Unspecified asthma, uncomplicated (ICD-10) History of miscarriage ?Z87.59 - Personal history of other complications of , childbirth and the puerperium (ICD-10) Surgical History [place] teeth extracted ?K08.409 - Partial loss of teeth, unspecified cause, unspecified class (ICD- 10) History of placement of ear tubes ?Z96.22 - Myringotomy tube(s) status (ICD-10) Family History Family/Other No significant family history Social History 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 What is your current living situation?: I presently have a place to live Problems where you live: no known problems In the past 12 months, utilities in danger of being shut off: no In past 12 months, lack of transportation kept you from medical appts, meetings, work, or getting things needed for daily living: no In the past 12 mos, have been you worried that your food would run out before you had money to buy more?: never true In the past 12 mos, the food you bought just didn't last and you didn't have money to buy more?: never true Smoking Status: Never smoker Do you use any of these nicotine containing products: None How often do you have a drink containing alcohol: never AUDIT-C Alcohol total score: 0 Non-prescribed substance use: denies use How often does anyone, including family, friends and others, physically hurt you : never How often does anyone, including family, friends and others, insult or talk down to you: never How often does anyone, including family, friends and others, threaten you with harm: never How often does anyone, including family, friends and others, scream or curse at you: never service: No Exam Narrative: Exam Narrative: On examination she is in moderate distress, grabbing her right side. Nontoxic, alert oriented x3 pupils equal round reactive to light there is no scleral icterus redness or TMs are normal oropharynx normal there is no adenopathy anterior posterior chains chest is good air entry bilaterally no wheezing crackles noted heart sounds are normal her abdomen shows marked tenderness in the right lower quadrant, on mild palpation. She does not have peritoneal signs, no other masses noted throughout her abdomen, bowel sounds are quiet no CVA tenderness, her back is nontender, good air entry bilaterally she moves all extremities independently and well. Const: Vital Signs, click to edit/add: Vital Signs - 24 hr 02/23/25 08:48 02/23/25 09:00 Temperature 98.6 F 98.6 F Pulse Rate [Right Pulse Oximeter] 50 L 48 L Respiratory Rate 18 16 Blood Pressure [Ri ght Upper Arm] 126/81 Pulse Oximetry 98 98 Oxygen Delivery Me thod Room Air Room Air Course Course ED Course: Spoke to the debug technician, there appears to be very poor venous flow on the right ovary. Large cysts, and a whirlpool sign, I will have the tech contact her OBGYN. This is indicative of torsion. Vital Signs Vital signs: Initial Vital Signs Temperature 98.6 F 02/23/25 08:48 Temperature Source Temporal Artery Scan 02/23/25 08:48 Pulse Rate 50 L 02/23/25 08:48 Pulse Rhythm Regular 02/23/25 08:48 Pulse Strength 3+ Normal 02/23/25 08:48 Respiratory Rate 18 02/23/25 08:48 Blood Pressure 126/81 02/23/25 08:48 Blood Pressure Mean 96 02/23/25 08:48 Blood Pressure Position Sitting 02/23/25 08:48 Pulse Oximetry 98 02/23/25 08:48 Oxygen Delivery Method Room Air 02/23/25 08:48 Vital Signs Temperature 98.6 F 02/23/25 08:48 Pulse Rate 50 L 02/23/25 08:48 Respiratory Rate 18 02/23/25 08:48 Blood Pressure 126/81 02/23/25 08:48 Pulse Oximetry 98 02/23/25 08:48 Oxygen Delivery Method Room Air 02/23/25 08:48 Temperature 98.6 F 02/23/25 09:00 Pulse Rate 48 L 02/23/25 09:00 Respiratory Rate 16 02/23/25 09:00 Blood Pressure 126/81 02/23/25 08:48 Pulse Oximetry 98 02/23/25 09:00 Oxygen Delivery Method Room Air 02/23/25 09:00 Medications Administered Medications: Discontinued Medications Generic Name Dose Route Start Last Admin Trade Name Freq PRN Reason Stop Dose Admin Hydromorphone HCl 0.5 mg 02/23/25 09:00 02/23/25 09:23 Hydromorphone 0.5 Mg/0.5 Ml Inj IVP 02/23/25 09:01 0.5 mg ONCE ONE Administration Sodium Chloride 1,000 mls @ 1,000 mls/hr 02/23/25 09:00 02/23/25 10:27 0.9 % Sodium Chloride 1000 Ml IV 02/23/25 09:59 1,000 mls/hr .Q1H LINDSAY Administration Ketorolac Tromethamine 30 mg 02/23/25 09:00 02/23/25 09:23 Ketorolac 30 Mg/Ml Inj IVP 02/23/25 09:01 30 mg ONCE ONE Administration Ondansetron HCl 4 mg 02/23/25 09:00 02/23/25 09:23 Ondansetron 2 Mg/Ml Inj IVP 02/23/25 09:01 4 mg ONCE ONE Administration MDM - Abdominal Pain MDM Narrative Medical decision making narrative: During the evaluation of this patient I considered multiple differential diagnosis including life-threatening differentials which are appendicitis, aortic aneurysm, mesenteric ischemia, bowel perforation, ectopic , volvulus and bowel obstruction, other differential diagnosis include but are not limited to inflammatory bowel disease, cholecystitis, pancreatitis, hepatitis, gastritis, GERD, diverticulitis, peptic ulcer disease, pyelonephritis/UTI, renal colic/stone, pelvic inflammatory disease, cervicitis, endometritis, intrauterine , dysfunctional uterine bleeding, ovarian cyst/torsion, spontaneous as well as other etiologies My highest concern here is ovarian torsion, given her presentation, chart from yesterday was reviewed, IV was started pain medication pelvic ultrasound, I did consult immediately Dr. Lexie Gutierrez, from OBGYN. She is aware for will review the ultrasound, and actually came into the department to see her while she was getting her ultrasound. Medical Records Attestation: I reviewed the patient's medical records. Lab Data Attestation: I reviewed the patient's lab results. Labs: Lab Results 02/23/25 Range/Units 09:17 WBC 7.26 (4.50-11.00) K/uL RBC 4.82 (4.00-5.20) m/uL Hgb 14.2 (12.0-16.0) gm/dL Hct 42.2 (33.0-51.0) % MCV 88 (80-100) fL MCH 30 (26-34) pg MCHC 34 (32-36) gm/dL RDW Coeff of Jeanette 11.7 (11.5-15.5) % Plt Count 351 (140-440) K/uL Neut % (Auto) 62.8 (42.0-72.0) % Lymph % (Auto) 29.5 (20-44) % [place] % (Auto) 5.2 (0.0-11.0) % Eos % (Auto) 1.7 (0.0-7.0) % Baso % (Auto) 0.7 (0.0-3.0) % Neut # (Auto) 4.56 (1.7-7.0) K/uL Lymph # (Auto) 2.14 (0.90-2.90) K/uL [place] # (Auto) 0.40 (0.00-0.90) K/UL Eos # (Auto) 0.12 (0.00-0.50) K/uL Baso # (Auto) 0.05 (0.00-0.30) K/uL Abs Immat Gran (auto) 0.01 (0.00-0.30) K/uL Imm/Tot Granulo (auto) 0.1 % Sodium 139 (135-149) mmol/L Potassium 3.7 (3.6-5.1) mmol/L Chloride 106 (96-114) mmol/L Carbon Dioxide 24 (20-32) mmol/L Anion Gap 9 (7-15) mEq/L BUN 11 (5-24) mg/dL Creatinine 0.8 (0.5-1.5) mg/dL Estimated Creat Clear 90.13 Estimated GFR 97 ml/min Glucose 96 (60-115) mg/dL Calcium 9.4 (8.4-10.6) mg/dL Reviewed labs labs are normal. I think this is reasonable, her test yesterday and her urine was negative. Imaging Data Pelvic ultrasound: Attestation: I have reviewed the pertinent imaging results. Radiologist's impression: [address] [address] Diagnostic Imaging Report Patient: Kathleen Desir MR#: [id number] : 1985 Acct:[id number] Loc: ED Service Date: 02/23/[address]: Ordering Physician: Dudley Cartagena M.D. Date of Service: 02/23/25 Procedure(s): US pelvic TA and TV Accession Number(s): [id number] cc: Provider,Not a Local; Dudley Cartagena M.D.~ For Patients: As a result of the Cures Act, medical imaging exams and procedure reports are released immediately into your electronic medical record. You may view this report before your referring provider. If you have questions, please contact your health care provider. INDICATION: Increased right adnexal pain with known large ovarian cysts. COMPARISON: Pelvic ultrasound on February 22, 2025 TECHNIQUE: Duarte-scale and color Doppler ultrasound of the uterus and ovaries from a transabdominal and transvaginal approach. Transvaginal ultrasound of the pelvis was performed to better visualize the genitourinary organs, such as the ovaries and/or endometrium. Color-flow and spectral Doppler imaging of both ovaries is performed. FINDINGS: Uterus: Size: 9.5 x 4.2 x 5.5 cm. Mass: No. Endometrium: Thickness: 10 mm. Mass or fluid collection: No. Right ovary: Size: Measures up to approximately 9 centimeters in greatest dimension Mass: Re-demonstration of two large cysts as detailed on yesterday`s pelvic ultrasound. The previously visualized 1.0 centimeter hypoechoic mass within the right ovary is not appreciated. Blood flow: Arterial flow is seen in the right ovary; however, no definitive venous flow is appreciated. Left ovary: Size: Measures up to approximately 13 centimeters in greatest dimension. Mass: Re-demonstration of 2 probable dermoids within the left ovary measuring up to approximately 7 centimeters Blood flow: Normal arterial and venous blood flow noted peripherally. Cul-de-sac and adnexa: Significant free Fluid: Trace fluid. Mass: No. IMPRESSION: 1. Redemonstration of 2 large right ovarian cysts measuring up to 6.4 centimeters. While arterial flow is seen within the right ovarian tissue, no venous flow is appreciated, concerning for right ovarian torsion. Recommend emergent consultation with gynecology. 2. Normal blood flow is visualized within the left ovary which contains likely two dermoids. Findings were discussed with Dr. Cartagena at 10:45 a.m. on 02/23/2025. Dictated by Umesh Adamson MD @ 02/23/2025 10:47:59 AM Discharge Plan Discharge Clinical Impression: Ovarian torsion, Abdominal pain, Ovarian cyst Patient Disposition: XFER to OR Condition: Guarded Instructions: Abdominal Pain (ED), Ovarian Torsion (DC) Follow Up/Referrals: Provider,Not a Local [Primary Care Provider, Family Practice]
[2025-02-23 09:45] LABS: Chloride* 106 mmol/L (96-114); Potassium* 3.7 mmol/L (3.6-5.1); Sodium* 139 mmol/L (135-149)
[2025-02-23 09:48] LABS: Anion Gap 9 mEq/L (7-15); Blood Urea Nitrogen* 11 mg/dL (5-24); Calcium* 9.4 mg/dL (8.4-10.6); Carbon Dioxide* 24 mmol/L (20-32); Creatinine* 0.8 mg/dL (0.5-1.5); Est. Creatinine Clearance* 90.13; Estimated Glomerular Filt Rate 97 ml/min; Glucose* 96 mg/dL (60-115)
[2025-02-23] MEDS: 0.9 % SODIUM CHLORIDE 1000 ml 1,000 ML IV (10:27)
--- NOTE | 2025-02-23 11:09 | P.GYNCN_ITS ---
GUEST RELATIONS COORDINATOR - CN: HPI Data of Consult Time Seen by Provider: 10:30 Date Seen: 02/23/25 Patient: [facility] Patient Consult date: 02/23/25 Primary Care Provider: Not a Local Provider Consult Narrative Reason for consult: abdominal pain Narrative: Kathleen Desir is a 39 year old female with known bilateral ovarian cysts that was seen yesterday at ED due to abdominal/pelvic pain. Please refer to ED note from 02/22/25. Patient states that after discharge yesterday she continued to experience pain but manageable. She was able to stop by the clinic and schedule an appointment. She went home and continued to feel progressively worse until last night, states that she was unable to sleep but did and woke up to take some ibuprofen and this morning she did describe pain as unbearable, threw up her ibuprofen and decided to come back in for re evaluation. cc:: CC: Review of Systems Status of ROS: Reports: 10 or more systems reviewed and unremarkable except as noted in History and below PFSH PFS Medical History Breech presentation ?O32.1XX0 - Maternal care for breech presentation, not applicable or unspecified (ICD-10) Asthma ?J45.909 - Unspecified asthma, uncomplicated (ICD-10) History of miscarriage ?Z87.59 - Personal history of other complications of , childbirth and the puerperium (ICD-10) Surgical History [place] teeth extracted ?K08.409 - Partial loss of teeth, unspecified cause, unspecified class (ICD- 10) History of placement of ear tubes ?Z96.22 - Myringotomy tube(s) status (ICD-10) Family History Family/Other No significant family history Social History 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 What is your current living situation?: I presently have a place to live Problems where you live: no known problems In the past 12 months, utilities in danger of being shut off: no In past 12 months, lack of transportation kept you from medical appts, meetings, work, or getting things needed for daily living: no In the past 12 mos, have been you worried that your food would run out before you had money to buy more?: never true In the past 12 mos, the food you bought just didn't last and you didn't have money to buy more?: never true Smoking Status: Never smoker Do you use any of these nicotine containing products: None How often do you have a drink containing alcohol: never AUDIT-C Alcohol total score: 0 Non-prescribed substance use: denies use How often does anyone, including family, friends and others, physically hurt you : never How often does anyone, including family, friends and others, insult or talk down to you: never How often does anyone, including family, friends and others, threaten you with harm: never How often does anyone, including family, friends and others, scream or curse at you: never service: No Meds Home Medications and Allergies Home Medications ?Medication ?Instructions ?Recorded ?Confirmed ?Type docosahexaenoic acid 200 mg 200 mg PO DAILY 03/10/24 0 02/23/25 History capsule ( DHA) docusate sodium 100 mg capsule 100 mg PO DAILY #90 cap s 10/18/24 02/23/25 Rx Allergies Allergy/AdvReac Type Severity Reaction Status Date / Time cefaclor (From [facility]) Allergy Intermediate Verified 02/23/25 08:52 GUEST RELATIONS COORDINATOR - Exam Physical Exam: Vital signs: Temp Pulse Resp BP Pulse Ox O2 Del Method 98.6 F 48 L 16 126/81 98 Room Air 02/23/25 09:00 02/23/25 09:00 02/23/25 09:00 02/23/25 08:48 02/23/25 09:00 02/23/25 09:00 Narrative: VITAL SIGNS: As noted above. GENERAL APPEARANCE: Alert, cooperative female in pain, nauseous. MOOD & AFFECT: Normal. ABDOMEN: Positive bowel sounds, although decreased all over. Soft, non- distended, positive guarding, no rebound, significant tenderness with light palpation mostly on the right abdomen. EXTREMITIES: Nonedematous. Well perfused. Nontender. GUEST RELATIONS COORDINATOR - Results Labs Labs: Short CBC 02/23/25 Range/Units 09:17 WBC 7.26 (4.50-11.00) K/uL Hgb 14.2 (12.0-16.0) gm/dL Hct 42.2 (33.0-51.0) % Plt Count 351 (140-440) K/uL [facility] 02/23/25 09:17 Sodium 139 Potassium 3.7 Chloride 106 Carbon Dioxide 24 BUN 11 Creatinine 0.8 Glucose 96 Calcium 9.4 Imaging Pelvic US: Attestation: I have reviewed the pertinent imaging results. Radiologist's impression: FINDINGS: Uterus: Size: 9.5 x 4.2 x 5.5 cm. Mass: No. Endometrium: Thickness: 10 mm. Mass or fluid collection: No. Right ovary: Size: Measures up to approximately 9 centimeters in greatest dimension Mass: Re-demonstration of two large cysts as detailed on yesterday`s pelvic ultrasound. The previously visualized 1.0 centimeter hypoechoic mass within the right ovary is not appreciated. Blood flow: Arterial flow is seen in the right ovary; however, no definitive venous flow is appreciated. Left ovary: Size: Measures up to approximately 13 centimeters in greatest dimension. Mass: Re-demonstration of 2 probable dermoids within the left ovary measuring up to approximately 7 centimeters Blood flow: Normal arterial and venous blood flow noted peripherally. Cul-de-sac and adnexa: Significant free Fluid: Trace fluid. Mass: No. IMPRESSION: 1. Redemonstration of 2 large right ovarian cysts measuring up to 6.4 centimeters. While arterial flow is seen within the right ovarian tissue, no venous flow is appreciated, concerning for right ovarian torsion. Recommend emergent consultation with gynecology. 2. Normal blood flow is visualized within the left ovary which contains likely two dermoids. Assessment and Plan Assessment and plan (1) Ovarian torsion: Status: Acute Plan Clinical and imaging findings today consistent with right ovarian torsion. Discussed recommendation for surgical intervention. Discussed recommendation to proceed with laparoscopic surgery, and bilateral cystectomies. Discussed how laparoscopic surgery is performed, usually with 3-4 small incisions in the abdomen and inserting a camera and filling out the abdomen with gas to separate structures. In her case 1st target would be right ovarian detorsion and cystectomy. Discussed that her left ovary is also large and with possible dermoid cyst. Discussed what a dermoid cyst is. Discussed that goal would be to remove cystic structure in a contained manner. Discussed that sometimes due to the size of the structures removed we need to extend abdominal incisions. Discussed that sometimes as a life-saving intervention we need to remove an ovary or both ovaries. Discussed that this would be our last resort since she is young and removal of ovaries would place her in a premature menopause and we would really like to avoid this. Reviewed that this is a surgery that is performed under general anesthesia and discussed what this means. Reviewed risk of surgery such as bleeding, patient does accept blood transfusions in the case of an emergency, risk of infection, damage to nearby organs such as intestines, bladder. Risk of blood clots. Reviewed usual recovery, reviewed recommendation to avoid lifting more than 20 lb for at least 2 weeks depending on the type of incisions in her abdomen. Informed consent was again reviewed with patient and in signed. We will proceed with surgery in an urgent manner. OR team notified.
[2025-02-23] MEDS: LACTATED RINGERS 1000 ML 1,000 ML 100 ML IV (12:00)
[2025-02-23] MEDS: BUPIVACAINE 0.5% 30 ML INJECTION (12:40)
[2025-02-23] MEDS: CLINDAMYCIN 900 MG/50 ML-D5W 900 MG/50 ML PIGGYBACK 100 MG IVPB (13:55)
--- NOTE | 2025-02-23 14:24 | SUR.OPER ---
family updated around 1420 via voicemail for
--- NOTE | 2025-02-23 14:37 | SUR.OPER ---
update: reached by different number, spoke to him and updated with same information at this time
--- NOTE | 2025-02-23 15:52 | P.ANES_ITS ---
Anesthesia Charges Start Date/Time Anesthesia Start Date: 02/23/25 Anesthesia Start Time: 11:57 Stop Date/Time Anesthesia Stop Date: 02/23/25 Anesthesia Stop Time: 15:55 Summary Emergency: DELIVERY CLERK Coding CPT Codes CPT Codes: ANESTH SURG LOWER ABDOMEN - 58722 ([id number]) P1 - NORMAL HEALTHY PATIENT, QK - PC NETWORK TECHNICIAN 2-4 CNCRNT ANES PROC, QX - DELIVERY CLERK SVC W/ MD MED DIRECTION Additional Codes: Summary - Emergency: DELIVERY CLERK ([id number])
--- NOTE | 2025-02-23 15:52 | W.ANESCHARGE ---
Anesthesia Charges Start Date/Time Anesthesia Start Date: 02/23/25 Anesthesia Start Time: 11:57 Stop Date/Time Anesthesia Stop Date: 02/23/25 Anesthesia Stop Time: 15:55 Summary Emergency: SUPERVISOR SEWER MAINTENANCE Coding CPT Codes CPT Codes: ANESTH SURG LOWER ABDOMEN - 33940 ([id number]) P1 - NORMAL HEALTHY PATIENT, QK - EDM OPERATOR 2-4 CNCRNT ANES PROC, QX - SUPERVISOR SEWER MAINTENANCE SVC W/ MD MED DIRECTION Additional Codes: Summary - Emergency: SUPERVISOR SEWER MAINTENANCE ([id number])
--- NOTE | 2025-02-23 15:56 | P.ANES_ITS ---
Anesthesia Charges Start Date/Time Anesthesia Start Date: 02/23/25 Anesthesia Start Time: 11:57 Stop Date/Time Anesthesia Stop Date: 02/23/25 Anesthesia Stop Time: 15:55 Summary Emergency: KYLE Coding CPT Codes CPT Codes: ANESTH SURG LOWER ABDOMEN - 75965 ([id number]) QK - CHIEF RELAY TESTER 2-4 CNCRNT ANES PROC, QX - RELAY TECHNICIAN SVC W/ MD MED DIRECTION, P1 - NORMAL HEALTHY PATIENT Additional Codes: Summary - Emergency: KYLE ([id number])
--- NOTE | 2025-02-23 15:56 | W.ANESCHARGE ---
Anesthesia Charges Start Date/Time Anesthesia Start Date: 02/23/25 Anesthesia Start Time: 11:57 Stop Date/Time Anesthesia Stop Date: 02/23/25 Anesthesia Stop Time: 15:55 Summary Emergency: KYLE Coding CPT Codes CPT Codes: ANESTH SURG LOWER ABDOMEN - 36392 ([id number]) QK - COURTESY CLERK 2-4 CNCRNT ANES PROC, QX - RETAIL TEAM LEADER SVC W/ MD MED DIRECTION, P1 - NORMAL HEALTHY PATIENT Additional Codes: Summary - Emergency: KYLE ([id number])
--- NOTE | 2025-02-23 16:19 | P.GYNPRC_ITS ---
Procedure Note Date of procedure: 02/23/25 Will [facility] bill your pro fee for this procedure?: Yes Pre-op diagnosis: Right ovarian torsion, bilateral ovarian cysts Post-op diagnosis: Right ovarian torsion, bilateral dermoid cysts Procedure: Laparoscopic right salpingo oophorectomy, left ovarian cystectomy, pelvic washings. Anesthesia: GETA Complications: None Surgeon: Marty Olson MD Director Of Investigations: Simona Echavarria Estimated blood loss (mL): 10 IV fluids (mL): 900 Urine Output (mL): 400 Pathology: specimen obtained, sent to pathology (pelvic washings, right ovary and fallopian tube, left ovarian cyst) Condition: stable Disposition: observation Findings: Normal external genitalia. Cervix: grossly normal w/o abnormal discharge or gross lesions. Intra abdominal survey: Right adnexal torsion involving the right fallopian tube and ovary. Right ovarian structure in general measured about at least 15-18 cm in largest dimension. No viable ovarian tissue identified. Right fallopian tube swollen and dusky in color. Ovarian surface looked all dusky in color. There seemed to be 2 large prominent cystic structure one that was filled with simple fluid and blood clots, another filled with yellowish fatty material as well as hair consistent with dermoid cyst. The left ovary measured about 8- 10cm and had another cystic structure that measured at least 6cm in largest dimension and was also consistent with dermoid cyst filled with a yellowish fatt y fluid as well as hair. Uterus grossly normal, anteverted and about 8cm. Grossly normal intestines and appendix, liver, gallbladder and stomach. Procedure Description: Patient was taken to the OR with IV fluid running and pneumatic compression stockings applied to the lower extremities. General anesthesia was obtained without difficulty. The patient was placed in the dorsal lithotomy position with Ciro type stirrups with knee bent at 30 degree angles. Patient was prepared and draped under usual sterile technique. Examination under anesthesia as above. The bladder was emptied and Yoder catheter placed. Speculum was placed in the vagina. The anterior lip of the cervix was grasped with a single- tooth tenaculum. A [employer] uterine manipulator was introduced. I then changed gloves and my attention was turned to the abdomen. The superior aspect of the umbilical fold was injected with 0.5% Bupivacaine plain. A 5 mm vertical incision was then made within the umbilical fold using a scalpel. A direct entry technique was used, a 5 mm laparoscopic port with CO2 gas set at 5mmHg was introduced under direct visualization. The trocar was removed leaving the sleeve in place. The CO2 gas flow was turned to high flow to achieve pneumoperitoneum. The 5 mm laparoscope was used then to carefully inspect the abdomen and pelvis with findings noted above. Pictures were taken for documentation purposes. The patient was placed in Trendelenburg positioning. Two additional ports were placed in the right and left lower quadrants under direct visualization after first anesthetizing the skin and fascia with 0.5% Bupivacaine plain. On the left side a 11mm port was utilized and on the right side a 5mm port placed. An additional 5mm port was placed on the abdomen at the level of the umbilicus to the left of umbilicus, about 5-6 cm lateral from umbilicus under direct visualization. Pelvic fluid noted upon entrance and collected as pelvic washings. Utilizing atraumatic graspers the right ovary was rolled and de torsed, the ovary was flipped around its axis 4 times. The right ureter was identified coursing in its normal anatomical position. The right infundibulopelvic ligament was identified and making sure there was a safe distance from the right pelvic side wall the IP was clamped, coagulated and cut with LigaSure device. Hemostasis secured. Then the right utero-ovarian ligament was clamped, coagulated and cut in the same manner utilizing LigaSure device. To completely be able to remove right ovarian structure the fimbrial end of the right fallopian tube that was swollen and attached to the right ovarian structure had to also be removed with specimen. Hemostasis was secured. At this time, the specimen was left in the pelvis and laparoscopic bag was introduced through the 11mm port. Specimen was too large to fit into bag. Decision was made since imaging and current intra abdominal findings consistent with dermoid cyst to attempt intra abdominal drainage and try to decrease its size. Utilizing a laparoscopic needle the cysts were aspirated on multiple locations, a large amount of simple free fluid and yellowish fatty like fluid collected, this decreased the size of the structure significantly. To avoid needing to open the abdomen, decision was made to divide the large structure in 2 pieces and this was achieved utilizing laparoscopic scissors. The specimen was removed as 2 separate pieces utilizing 2 laparoscopic bags. The right lower abdomen incision was extended slightly to accommodate specimen bag. There was an inevitable large amount of fatty like fluid spilled in the abdomen/pelvis. Reason for which an extensive irrigation was completed of the abdomen and pelvis on multiple occasions until clear fluid was mostly obtained. Attention was then placed to the remaining right fallopian tube and utilizing LigaSure the remaining mesosalpinx was progressively clamped, coagulated and cut. There was some bl eeding identified from this resection site that was managed with LigaSure and monopolar energy, hemostasis secured. Attention was then placed on the left ovary. Utilizing laparoscopic scissors and [place] the ovarian cyst capsule was opened and cyst was peeled off and noted to also have spillage of the same yellowish fatty like fluid as well as hair tissue. Cyst was removed and ovarian stroma was evaluation and hemostasis secured with LigaSure and monopolar device. Another laparoscopic bag was inserted under direct visualization through the 11mm port and removed from the abdomen. At this time additional irrigation of the abdomen and pelvis was again completed. For the entire procedure a total of about 10L of irrigation were utilized. Resection sites were again evaluated, intra abdominal pressure was decreased to 3mmHg and resection sites were noted to be hemostatic. Xuan was also utilized at resection sites to further secure hemostasis. Trocars removed under direct visualization. The pneumoperitoneum was released, and correct instrument counts were confirmed. The fascia of the right abdominal incision was then identified and grasped with Karen clamps at the edges and closed in a continuos fashion utilizing Vicryl 0 suture. The subcutaneous skin at this site was approximated with Vicryl 3-0 suture. Skin incisions were closed with 4-0 Monocryl sutures in a subcuticular fashion. All instruments removed from vagina, Yoder catheter kept in place. The patient tolerated the procedure well. Sponge, lap, needle, and instrument counts were reported as correct x2. The patient was taken to the recovery room awake and in stable condition. She did receive Clindamycin and Gentamicin intraoperatively as infection prophylaxis due to Cephalosporin allergy.
[2025-02-23] MEDS: LACTATED RINGERS 1000 ML 1,000 ML 40 ML IV (17:06)
--- NOTE | 2025-02-23 19:36 | PC.NURSE ---
end of shift-- Pleasant and cooperative, alert and oriented patient arrived from PACU at roughly 1630. VSS and pt is afebrile. SPO2 98-100% on RA. She c/o only some mild pain in abdomen which she rated 2 out of 10 and declined intervention for it. 4x lap sites are GRETA and intact with skin glue. LS CTA. She c/o nausea and had 1x emesis this evening. MD was notified and pt was given Zofran per MD. Aromatherapy patch also applied. Yoder is patent and draining clear, yellow urine. is at bedside and appears loving and supportive. Report to CHARAN Robertson.
--- NOTE | 2025-02-23 21:52 | PC.NURSE ---
Verified with Dr. Olson that patient can continue to breastfeed with current medication. MD states it is safe to continue to breastfeed.
[2025-02-24 02:21] VITALS: BP 97/54; PULSE 82; RESP 17; TEMP 36.7; O2SAT 98
[2025-02-24 04:37] VITALS: BP 106/60; PULSE 60; RESP 17; O2SAT 98
[2025-02-24] MEDS: KETOROLAC 30 MG/ML inj IVP ×2 (04:40→09:48)
[2025-02-24 06:25] LABS: Basophils Percent Auto 0.3 % (0.0-3.0); Eosinophils Percent Auto 0.1 % (0.0-7.0); Hematocrit 35.3 % (33.0-51.0); Hemoglobin* 11.9 gm/dL (12.0-16.0); Immature Granulocytes Pct Auto 0.2 %; Lymphocytes Percent Auto 19.9 % (20-44); Mean Corpuscular HGB Conc 34 gm/dL (32-36); Mean Corpuscular Hemoglobin 30 pg (26-34); Mean Corpuscular Volume 89 fL (80-100); Monocytes Percent Auto 7.7 % (0.0-11.0); Neutrophils Percent Auto 71.8 % (42.0-72.0); Platelet Count* 306 K/uL (140-440); RDW Coefficient of Variation % 11.9 % (11.5-15.5); Red Blood Count 3.99 m/uL (4.00-5.20); White Blood Count* 14.33 K/uL (4.50-11.00)
[2025-02-24 06:32] LABS: Slide Review Reflex No
--- NOTE | 2025-02-24 06:49 | PC.NURSE ---
Shift note ([id number]): Patient pleasant, alert and oriented. Ambulated in hallway last evening with stand by assist. Catheter D/C?d at that time. Pt has been?ambulating independently in room. Denies nausea. Tolerating fluids, crackers, applesauce and ice cream. Urinated this morning. Given scheduled Toradol for abdominal pain rated 1-5/10. Small amount of blood in maxi pad. Abdominal lap sites clean dry and intact. No drainage noted.??
[2025-02-24 08:24] VITALS: BP 111/60; PULSE 59; RESP 16; TEMP 37.2; O2SAT 98
--- NOTE | 2025-02-24 11:02 | PM.GYNDS1 ---
DS: Providers Provider Date Seen: 02/24/25 Primary care physician: Not a Local Provider Attending Physician on discharge: Jelena Olson MD MANAGER BUSINESS CONTINUITY-Discharge Summary Hospital Course Hospital Course Narrative: Patient is a 39 year old admitted on 02/23 for laparoscopic right salpingo oophorectomy and left ovarian cystectomy. Indication for surgery: Right ovarian torsion, bilateral large suspected dermoid ovarian cyst. Intraoperative findings were notable for markedly enlarged right ovary, edematous and ischemic in appearance secondary to ovarian torsion. Torsion x4 noted around the right infundibulopelvic ligament. Left ovary enlarged with a approximately 5cm dermoid cyst. Unremarkable upper abdominal survey and appendix. Please see Dr. Victor Manuel Gutierrez's operative note for complete details. She had an uncomplicated surgery. Extensive irrigation was performed in the setting of dermoid cyst fluid contamination. Postoperative course has been uneventful. Vitals have been stable. She has remained afebrile. Today, on postoperative day 1, she reports the pain is well controlled on NSAIDs and Tylenol. She has been able to ambulate Without difficulty. She is tolerating regular diet. She is passing flatus. Yoder catheter has been removed, and she is voiding without difficulty. Notes no significant vaginal bleeding. She does notice some diaphragmatic irritation and shoulder pain, likely secondary to pneumo peritoneum. She denies any acute chest pain, dyspnea, dizziness/lightheadedness. Time Spent with Patient Time attestation: Total time spent providing and/or coordinating discharge services: Time spent: Less than 30 minutes MANAGER BUSINESS CONTINUITY - Exam Physical Exam: Vital signs: Temp Pulse Resp BP Pulse Ox O2 Del Method 99 F 59 L 16 111/60 98 Room Air 02/24/25 08:24 02/24/25 08:24 02/24/25 08:24 02/24/25 08:24 02/24/25 08:24 02/24/25 08:24 Narrative: General: Alert and oriented, no acute distress Psych: Appropriate mood and affect Abdomen: Soft, nondistended. Mild tenderness to palpation in the lower quadrants, consistent with postoperative state. No rebound or guarding. All incisions are well approximated, overlying surgical glue noted. Incisions have no erythema, ecchymosis or drainage. MANAGER BUSINESS CONTINUITY - DS: Data Data Completed and Pending Completed studies during hospitalization: Procedures Delivery of Products of Conception, External Approach (10/16/24) Repair Perineum Muscle, Open Approach (10/16/24) Labs on day of discharge: Labs from last 24 hours 02/24/25 02/23/25 05:44 13:25 WBC 14.33 H RBC 3.99 L Hgb 11.9 L Hct 35.3 MCV 89 MCH 30 MCHC 34 RDW Coeff of Jeanette 11.9 Plt Count 306 Neut % (Auto) 71.8 Lymph % (Auto) 19.9 L Wharton % (Auto) 7.7 Eos % (Auto) 0.1 Baso % (Auto) 0.3 Neut # (Auto) 10.30 H Lymph # (Auto) 2.90 Wharton # (Auto) 1.10 H Eos # (Auto) 0.00 Baso # (Auto) 0.00 Abs Immat Gran (auto) 0.00 Imm/Tot Granulo (auto) 0.2 Cytology Interpretat Pending Procedures Procedures: Procedures Operation Date: 02/23/25 10:30 Actual Procedure Side Surgeon p Laparoscopic Right Salpingo-oophorectomy, Left Ovarian Cystectomy, Pelvic Washings Jelena Olson MD Discharge Plan Discharge Disposition: Home w/ Parent or Adult Discharging Surgeon: Simona Echavarria Follow-Up Appointment: 2 weeks at [facility] Prescriptions: New acetaminophen 500 mg Tablet 1,000 mg PO Q6H PRNQty: 30 0RF ibuprofen 600 mg Tablet 600 mg PO Q6H Qty: 30 0RF oxycodone 5 mg Tablet 5 mg PO Q4H PRN (Reason: Moderate Pain) Qty: 15 0RF Continued DHA 200 mg capsule 200 mg PO DAILY docusate sodium 100 mg Capsule 100 mg PO DAILY Qty: 90 1RF Activity Level: No strenuous activity Activity Detail: No lifting more than 20 pounds for 3-4 weeks. Discharge Diet: Regular Patient Instructions: Laparoscopic Oophorectomy (DC) Follow-up: Jelena Olson MD [Staff Physician, [employer] PATCHING MACHINE OPERATOR] - 03/09/25 10:00 am Referral Note: [facility] for postop follow-up. Provider,Not a Local [Primary Care Provider, Family Practice] Discharge Orders: Discharge Order (Routine); Ordered 02/24/25 Ordered By: Simona Echavarria
[2025-02-24 11:27] VITALS: BP 116/69; PULSE 56; RESP 20; TEMP 36.8; O2SAT 98
--- NOTE | 2025-02-24 12:04 | PC.NURSE ---
Discharge: Patient pleasant and cooperative. Patient vitally stable, lungs clear, BS WNL, IV removed, catheter intact. Patient abdominal lap sites x4 C/D/I. Patient rates abdominal pain at most 4/10, schedule toradol given. Patient tolerating regular diet, and urinating well. Patient signed discharge form and had no further questions regarding education. Patient's was present for . Patient left the floor ambulating independently to home at 1202.
== END 2025-02-24 12:02 | disposition home or self-care (01) ==
LOC: ED 10:30 → OR 12:05 → MEDSURG 17:01
PROVIDERS: Emergency Provider Family Medicine; Visit Provider Obstetrics & Gynecology
PROC: (CPT 58662; principal; 2025-02-23 10:30)
DX: N83.511 Torsion of right ovary and ovarian pedicle (principal); D27.0 Benign neoplasm of right ovary; D27.1 Benign neoplasm of left ovary; J45.909 Unspecified asthma, uncomplicated
CPT/HCPCS: 58661; 58662; 49084; 00840; 36415; 76830; 76856; 80048; 81001; 85025; 88112; 93976; 99140; 99284; 99285; J0665; J0736; J1100; J1171; J1580; J1885; J2250; J2405; J2704; J2710; J3010; J3490; J7030; J7120